=== PATIENT | male | born 1995 | race Caucasian/White ===

== ENCOUNTER 2022-12-31 18:57 | Emergency (ER) | payer OTHER, SELFPAY ==
--- NOTE | ~2022-12-31 | XR_ITS ---
EXAM: XR finger 5th RT min 2V DATE: 12/31/2022 19:30 HISTORY: rt 5th finger pain s/p injury . COMPARISON: None available. FINDINGS: Normal mineralization. No fracture or dislocation. No lytic or blastic lesion. Joint space s are maintained. No erosion or periosteal change. Soft tissues within normal limits. IMPRESSION: No acute osseous finding in the right fifth finger. Reviewed, dictated and finalized at location K.
--- NOTE | 2022-12-31 19:07 | ED.WOUNDLAC ---
HPI - Wound/Laceration General Chief Complaint: Wound/Laceration Stated Complaint: Left Hand Laceration Time Seen by Provider: 12/31/22 19:08 Source: patient Mode of arrival: ambulatory Limitations: no limitations History of Present Illness HPI narrative: Neno is a 27-year-old male patient presenting to the clinic today with complaints of left 5th finger injury/laceration. He reports he works overnight at [employer] and this injury occurred around 12 20 this morning. States that he was trying to move a metal shelf and did not take all the strap off and the strap broke and came and hit him in the finger. He did report having pain with moving of his left 5th finger and also has a cut over his left knuckle. States after happened he cleaned it put some gauze on it with a metal finger splint. Related Data Home Medications Medication Instructions Recorded Confirmed citalopram 20 mg tablet 20 mg DIRECTED 12/31/22 12/31/22 methylphenidate HCl 27 mg 27 mg PO DIRECTED 12/31/22 12/31/22 tablet,extended release 24 hr sertraline 25 mg tablet 25 mg DIRECTED 12/31/22 12/31/22 Allergies Allergy/AdvReac Type Severity Reaction Status Date / Time No Known Allergies Allergy Mild Verified 04/26/08 19:27 Review of Systems Review of Systems: Pertinent positives per HPI. Patient denies any fever, chills, rash, headache, visual changes, dizziness, cough, runny nose, sore throat, shortness of breath, chest pain, palpitations, nausea, vomiting, diarrhea, constipation, abdominal pain, or any urinary issues. PMFSH Comments At the time of my signature, I reviewed and agree with the nursing past medical, surgical, social, and family history. There is no relevant family history pertinent to the patient complaint. Exam Narrative: General: Well-developed, well nourished, in no apparent distress Head: Normocephalic, atraumatic. Cardio: Regular rate and rhythm, s1 and s2 normal, no murmur appreciated. Resp: Clear to auscultation bilaterally, no rhonchi, rales, wheezing or rubs. Integumentary: [place], warm, and dry, intact without lesion, 1 cm superficial laceration to the left 5th finger just below the knuckle, pain with flexion and extension over the PIP joint Course Course Emergency Course: Portions of this record may have been created with voice recognition software. Level of Care: Express Care Visit Vital Signs Vital signs: Vital signs reviewed MDM - Wound/Laceration MDM Narrative Medical decision making narrative: At the time of visit patient is resting comfortably on the exam table. X-ray of the left 5th completed in the clinic today. Unfortunately due to timing of laceration we were unable to do any suturing in the clinic today. Wound looks clean and is not dehiscing with movement/manipulation. No redness, swelling, or drainage. Recommend continuing to wear the metal finger splint. Keep wound clean and dry. Watch for signs and symptoms of infection. Supportive measures were discussed with the patient he voiced understanding discharge instructions agrees to treatment plan. Differential Diagnosis Differential diagnosis: Likely laceration, abrasion, avulsion of skin and other (Finger fracture, finger contusion) Imaging Data Radiologist's impression: Close Finger X-Ray (Signed) Ziyad Nix - 12/31/22 [facility] [place] [address] XRay Report Signed Patient: Neno Sahu : 1995 MR#: [id number] Age/Sex: 27 / M Acct:[id number] Loc: [facility]? ? ADM Date: 12/31/22Attending Dr: Ordering Physician: Robel Roper APRN Date of Service: 12/31/22 Procedure(s): XR finger 5th RT min 2V Accession Number(s): [id number] cc: Robel Roper APRN; Doris, Meredith Guardado MD~ EXAM:? XR finger 5th RT min 2V DATE: 12/31/2022 19:30 HISTORY: rt 5th finger pain s/p injury .
[2022-12-31 19:15] VITALS: BP 112/81; PULSE 78; RESP 16; TEMP 37.1; O2SAT 100
[2022-12-31] MEDS: TETANUS,DIPHTHERIA,AC PERTUSSIS ADULT (0.5 ML) BOOSTRIX IM (19:28)
== END 2022-12-31 19:49 | disposition home or self-care (01) ==
PROVIDERS: Emergency Provider Nurse Practitioner Family; PCP Family Medicine
DX: S61.216A Laceration without foreign body of right little finger without damage to nail, initial encounter (principal); S60.051A Contusion of right little finger without damage to nail, initial encounter; W22.8XXA Striking against or struck by other objects, initial encounter; Y99.0 Civilian activity done for income or pay; Z23 Encounter for immunization; F90.9 Attention-deficit hyperactivity disorder, unspecified type; F41.9 Anxiety disorder, unspecified; F32.A Depression, unspecified
CPT/HCPCS: 73140; 90471; 90715; 99213; G0463